=== PATIENT | male | born 1960 | race African-American/Black ===

== ENCOUNTER 2019-06-16 15:45 | Inpatient (IN) | payer MEDICAID, OTHER ==
[~2019-06-16] VITALS: Ht 165.1 cm; Wt 68.0 kg
[~2019-06-16 15:45] MED LIST: [UNRECOGNIZED DRUG - CODE] IH
[2019-06-16 16:45] VITALS: BP 120/85
[2019-06-16 17:44] VITALS: BP 120/85
[2019-06-16] MEDS ORDERED: IPRATROPIUM/ALBUTEROL 0.5-3(2.5)MG/3ML NEB HHN PRN (17:45)
[2019-06-16] MEDS ORDERED: HYDROCODONE/ACETAMINOPHEN 5/325MG TABLET PO PRN (18:00)
[2019-06-16 20:00] VITALS: BP 130/71
[2019-06-16] MEDS ORDERED: METHOCARBAMOL 750MG TABLET PO SCH (21:00)
[2019-06-16] MEDS: METHOCARBAMOL 500MG TABLET PO SCH (21:38)
[2019-06-16] MEDS: TRIAMCINOLONE ACETONIDE 0.025% CREAM 15GM TOP SCH (21:39)
[2019-06-16] MEDS: GABAPENTIN 300MG CAPSULE PO SCH (21:39)
[2019-06-16] MEDS: ASCORBIC ACID 500 MG TABLET PO SCH (21:39)
[2019-06-16] MEDS: HYDROCODONE/ACETAMINOPHEN 5/325MG TABLET PO PRN (21:44)
[2019-06-16] MEDS: DIPHENHYDRAMINE 25MG CAPSULE PO PRN (23:07)
[2019-06-17] MEDS: HYDROCODONE/ACETAMINOPHEN 5/325MG TABLET PO PRN (03:40)
[2019-06-17] MEDS: GABAPENTIN 300MG CAPSULE PO SCH ×3 (05:40→21:06)
[2019-06-17] MEDS: DIPHENHYDRAMINE 25MG CAPSULE PO PRN ×3 (05:44→23:09)
[2019-06-17] MEDS: BUDESONIDE 0.5MG/2ML NEB HHN SCH ×2 (07:52→21:45)
[2019-06-17 08:20] VITALS: BP 113/66
[2019-06-17] MEDS: ASCORBIC ACID 500 MG TABLET PO SCH ×2 (08:27→20:56)
[2019-06-17] MEDS: NICOTINE 7MG PATCH TD SCH (08:27)
[2019-06-17] MEDS: TRIAMCINOLONE ACETONIDE 0.025% CREAM 15GM TOP SCH (08:27)
[2019-06-17] MEDS: DOCUSATE SODIUM 100MG CAPSULE PO SCH ×2 (08:27→17:17)
[2019-06-17] MEDS: FUROSEMIDE 20MG TABLET PO SCH (08:27)
[2019-06-17] MEDS: POLYETHYLENE GLYCOL 3350 (17GM) 1 DOSE PACK PO SCH (08:28)
[2019-06-17] MEDS: METHOCARBAMOL 500MG TABLET PO SCH (08:28)
[2019-06-17] MEDS: HYDROCODONE/ACETAMINOPHEN 10/325MG TABLET PO PRN ×2 (12:39→18:41)
[2019-06-17] MEDS ORDERED: METHOCARBAMOL 500MG TABLET PO SCH (13:00)
[2019-06-17] MEDS: METHOCARBAMOL 750MG TABLET PO SCH ×3 (13:50→20:56)
[2019-06-17 15:27] LABS: HEMATOCRIT. 41.2 % (42.0-52.0); HEMOGLOBIN. 14.3 g/dL (14.0-18.0); MEAN CORPUSCULAR HEMOGLOBIN 30.1 pg (28.0-32.0); MEAN CORPUSCULAR VOLUME 86.5 fL (80.0-94.0); PLATELET 432 x1000/uL (130-400); RED BLOOD CELL COUNT 4.76 mill/uL (4.7-6.1); RED CELL DISTRIBUTION WIDTH 15.4 % (11.6-14.6)
[2019-06-17 15:50] LABS: CHLORIDE 99 mEq/L (98-107)
[2019-06-17 16:41] LABS: PLATELET ESTIMATE INCREASED
[2019-06-17 20:00] VITALS: BP 128/75
[2019-06-17] MEDS: TRIAMCINOLONE ACETONIDE 0.5% CREAM 15GM TOP SCH (20:56)
[2019-06-18] MEDS: HYDROCODONE/ACETAMINOPHEN 10/325MG TABLET PO PRN ×4 (00:41→20:09)
[2019-06-18] MEDS: GABAPENTIN 300MG CAPSULE PO SCH ×3 (05:53→21:10)
[2019-06-18] MEDS: DIPHENHYDRAMINE 25MG CAPSULE PO PRN ×2 (06:15→20:09)
[2019-06-18 08:19] VITALS: BP 107/59
[2019-06-18] MEDS: NICOTINE 7MG PATCH TD SCH (08:24)
[2019-06-18] MEDS: METHOCARBAMOL 750MG TABLET PO SCH ×4 (08:24→21:16)
[2019-06-18] MEDS: FUROSEMIDE 20MG TABLET PO SCH (08:24)
[2019-06-18] MEDS: ASCORBIC ACID 500 MG TABLET PO SCH ×2 (08:24→20:09)
[2019-06-18] MEDS: DOCUSATE SODIUM 100MG CAPSULE PO SCH ×2 (08:25→16:52)
[2019-06-18] MEDS: TRIAMCINOLONE ACETONIDE 0.5% CREAM 15GM TOP SCH ×2 (08:25→21:10)
[2019-06-18] MEDS: POLYETHYLENE GLYCOL 3350 (17GM) 1 DOSE PACK PO SCH (08:25)
[2019-06-18] MEDS: BUDESONIDE 0.5MG/2ML NEB HHN SCH (10:54)
[2019-06-18 20:00] VITALS: BP 112/60
[2019-06-18 23:37] LABS: CLARITY URINE CLEAR (CLEAR); COLOR URINE YELLOW (YELLOW); KETONES URINE NEGATIVE (NEGATIVE); LEUKOCYTE ESTERASE URINE NEGATIVE (NEGATIVE); NITRITE URINE NEGATIVE (NEGATIVE); OCCULT BLOOD URINE NEGATIVE (NEGATIVE); PROTEIN URINE NEGATIVE (NEGATIVE); SPECIFIC GRAVITY URINE 1.015 (1.005-1.030); UROBILINOGEN URINE 0.2 E.U./dL (0.2-1.0)
[2019-06-19] MEDS: HYDROCODONE/ACETAMINOPHEN 10/325MG TABLET PO PRN ×3 (02:11→17:29)
[2019-06-19] MEDS: DIPHENHYDRAMINE 25MG CAPSULE PO PRN ×3 (02:11→22:18)
[2019-06-19] MEDS: GABAPENTIN 300MG CAPSULE PO SCH ×3 (05:17→21:39)
[2019-06-19 08:00] VITALS: BP 112/68
[2019-06-19] MEDS: METHOCARBAMOL 750MG TABLET PO SCH ×4 (08:35→21:40)
[2019-06-19] MEDS: TRIAMCINOLONE ACETONIDE 0.5% CREAM 15GM TOP SCH ×2 (08:35→21:39)
[2019-06-19] MEDS: NICOTINE 7MG PATCH TD SCH (08:35)
[2019-06-19] MEDS: ASCORBIC ACID 500 MG TABLET PO SCH ×2 (08:36→21:40)
[2019-06-19] MEDS: FUROSEMIDE 20MG TABLET PO SCH (08:36)
[2019-06-19] MEDS: DOCUSATE SODIUM 100MG CAPSULE PO SCH ×3 (08:36→17:00)
[2019-06-19] MEDS: POLYETHYLENE GLYCOL 3350 (17GM) 1 DOSE PACK PO SCH (08:37)
[2019-06-19] MEDS: BUDESONIDE 0.5MG/2ML NEB HHN SCH ×2 (10:00→21:57)
[2019-06-19 20:00] VITALS: BP 125/74
[2019-06-20] MEDS: HYDROCODONE/ACETAMINOPHEN 10/325MG TABLET PO PRN ×3 (01:35→23:28)
[2019-06-20] MEDS: DIPHENHYDRAMINE 25MG CAPSULE PO PRN ×2 (04:09→21:49)
[2019-06-20] MEDS: GABAPENTIN 300MG CAPSULE PO SCH ×3 (07:00→21:50)
[2019-06-20 07:57] VITALS: BP 140/76
[2019-06-20] MEDS: FUROSEMIDE 20MG TABLET PO SCH (08:57)
[2019-06-20] MEDS: ASCORBIC ACID 500 MG TABLET PO SCH ×2 (08:57→21:50)
[2019-06-20] MEDS: METHOCARBAMOL 750MG TABLET PO SCH ×4 (08:57→21:50)
[2019-06-20] MEDS: DOCUSATE SODIUM 100MG CAPSULE PO SCH ×2 (08:57→17:00)
[2019-06-20] MEDS: NICOTINE 7MG PATCH TD SCH (08:57)
[2019-06-20] MEDS: TRIAMCINOLONE ACETONIDE 0.5% CREAM 15GM TOP SCH ×2 (08:57→21:53)
[2019-06-20] MEDS: POLYETHYLENE GLYCOL 3350 (17GM) 1 DOSE PACK PO SCH (08:58)
[2019-06-21] VITALS: BP 134/80
[2019-06-21] MEDS: GABAPENTIN 300MG CAPSULE PO SCH ×3 (06:20→21:29)
[2019-06-21] MEDS: HYDROCODONE/ACETAMINOPHEN 10/325MG TABLET PO PRN ×3 (06:26→22:54)
[2019-06-21 08:08] VITALS: BP 122/72
[2019-06-21] MEDS: DOCUSATE SODIUM 100MG CAPSULE PO SCH ×2 (08:10→17:00)
[2019-06-21] MEDS: POLYETHYLENE GLYCOL 3350 (17GM) 1 DOSE PACK PO SCH (08:10)
[2019-06-21] MEDS: ASCORBIC ACID 500 MG TABLET PO SCH ×2 (08:48→21:29)
[2019-06-21] MEDS: FUROSEMIDE 20MG TABLET PO SCH (08:48)
[2019-06-21] MEDS: METHOCARBAMOL 750MG TABLET PO SCH ×4 (08:48→21:29)
[2019-06-21] MEDS: NICOTINE 7MG PATCH TD SCH (08:48)
[2019-06-21] MEDS: TRIAMCINOLONE ACETONIDE 0.5% CREAM 15GM TOP SCH ×2 (08:49→21:31)
[2019-06-21] MEDS: DIPHENHYDRAMINE 25MG CAPSULE PO PRN (08:51)
[2019-06-21 20:00] VITALS: BP 135/75
[2019-06-22] MEDS: GABAPENTIN 300MG CAPSULE PO SCH ×3 (05:11→21:22)
[2019-06-22 08:14] VITALS: BP 127/76
[2019-06-22] MEDS: FUROSEMIDE 20MG TABLET PO SCH (08:29)
[2019-06-22] MEDS: DOCUSATE SODIUM 100MG CAPSULE PO SCH ×2 (08:29→17:00)
[2019-06-22] MEDS: ASCORBIC ACID 500 MG TABLET PO SCH ×2 (08:29→21:22)
[2019-06-22] MEDS: POLYETHYLENE GLYCOL 3350 (17GM) 1 DOSE PACK PO SCH (08:29)
[2019-06-22] MEDS: NICOTINE 7MG PATCH TD SCH (08:29)
[2019-06-22] MEDS: METHOCARBAMOL 750MG TABLET PO SCH ×4 (08:29→21:22)
[2019-06-22] MEDS: TRIAMCINOLONE ACETONIDE 0.5% CREAM 15GM TOP SCH ×2 (08:30→21:23)
[2019-06-22] MEDS: HYDROCODONE/ACETAMINOPHEN 10/325MG TABLET PO PRN ×2 (12:09→22:15)
[2019-06-22 20:00] VITALS: BP 121/77
[2019-06-23] MEDS: HYDROCODONE/ACETAMINOPHEN 10/325MG TABLET PO PRN ×3 (03:42→22:36)
[2019-06-23] MEDS: GABAPENTIN 300MG CAPSULE PO SCH ×3 (05:44→21:17)
[2019-06-23 07:57] VITALS: BP 122/71
[2019-06-23] MEDS: ASCORBIC ACID 500 MG TABLET PO SCH ×2 (08:21→21:16)
[2019-06-23] MEDS: METHOCARBAMOL 750MG TABLET PO SCH ×4 (08:21→21:17)
[2019-06-23] MEDS: FUROSEMIDE 20MG TABLET PO SCH (08:21)
[2019-06-23] MEDS: NICOTINE 7MG PATCH TD SCH (08:22)
[2019-06-23] MEDS: TRIAMCINOLONE ACETONIDE 0.5% CREAM 15GM TOP SCH ×2 (08:22→21:17)
[2019-06-23] MEDS: DOCUSATE SODIUM 100MG CAPSULE PO SCH ×2 (08:25→16:18)
[2019-06-23] MEDS: POLYETHYLENE GLYCOL 3350 (17GM) 1 DOSE PACK PO SCH (08:25)
[2019-06-23 20:00] VITALS: BP 119/76
[2019-06-24] MEDS: HYDROCODONE/ACETAMINOPHEN 10/325MG TABLET PO PRN ×3 (04:26→21:07)
[2019-06-24] MEDS: GABAPENTIN 300MG CAPSULE PO SCH ×3 (05:39→21:00)
[2019-06-24 08:11] VITALS: BP 110/77
[2019-06-24] MEDS: POLYETHYLENE GLYCOL 3350 (17GM) 1 DOSE PACK PO SCH (09:00)
[2019-06-24] MEDS: DOCUSATE SODIUM 100MG CAPSULE PO SCH ×2 (09:00→17:00)
[2019-06-24] MEDS: METHOCARBAMOL 750MG TABLET PO SCH ×4 (10:00→21:00)
[2019-06-24] MEDS: ASCORBIC ACID 500 MG TABLET PO SCH ×2 (10:01→21:00)
[2019-06-24] MEDS: FUROSEMIDE 20MG TABLET PO SCH (10:01)
[2019-06-24] MEDS: NICOTINE 7MG PATCH TD SCH (10:02)
[2019-06-24] MEDS: TRIAMCINOLONE ACETONIDE 0.5% CREAM 15GM TOP SCH ×2 (10:03→21:00)
[2019-06-24] MEDS: DIPHENHYDRAMINE 25MG CAPSULE PO PRN (10:18)
[2019-06-24 20:00] VITALS: BP 111/69
[2019-06-25] MEDS: DIPHENHYDRAMINE 25MG CAPSULE PO PRN ×3 (01:23→22:29)
[2019-06-25] MEDS: GABAPENTIN 300MG CAPSULE PO SCH ×3 (05:51→21:07)
[2019-06-25] MEDS: HYDROCODONE/ACETAMINOPHEN 10/325MG TABLET PO PRN ×3 (05:52→22:30)
[2019-06-25 08:16] VITALS: BP 113/73
[2019-06-25] MEDS: FUROSEMIDE 20MG TABLET PO SCH (08:21)
[2019-06-25] MEDS: METHOCARBAMOL 750MG TABLET PO SCH ×4 (08:21→20:31)
[2019-06-25] MEDS: DOCUSATE SODIUM 100MG CAPSULE PO SCH ×3 (08:21→16:34)
[2019-06-25] MEDS: ASCORBIC ACID 500 MG TABLET PO SCH ×2 (08:21→21:07)
[2019-06-25] MEDS: NICOTINE 7MG PATCH TD SCH (08:22)
[2019-06-25] MEDS: POLYETHYLENE GLYCOL 3350 (17GM) 1 DOSE PACK PO SCH (08:25)
[2019-06-25] MEDS: TRIAMCINOLONE ACETONIDE 0.5% CREAM 15GM TOP SCH ×2 (08:40→21:09)
[2019-06-25 16:15] VITALS: BP 127/94
[2019-06-25 20:00] VITALS: BP 131/68
[2019-06-26] MEDS: GABAPENTIN 300MG CAPSULE PO SCH (05:24)
[2019-06-26] MEDS: HYDROCODONE/ACETAMINOPHEN 10/325MG TABLET PO PRN (05:25)
[2019-06-26 07:56] VITALS: BP 126/70
[2019-06-26] MEDS: DOCUSATE SODIUM 100MG CAPSULE PO SCH (08:20)
[2019-06-26] MEDS: NICOTINE 7MG PATCH TD SCH (08:21)
[2019-06-26] MEDS: METHOCARBAMOL 750MG TABLET PO SCH (08:21)
[2019-06-26] MEDS: FUROSEMIDE 20MG TABLET PO SCH (08:21)
[2019-06-26] MEDS: POLYETHYLENE GLYCOL 3350 (17GM) 1 DOSE PACK PO SCH (08:21)
[2019-06-26] MEDS: TRIAMCINOLONE ACETONIDE 0.5% CREAM 15GM TOP SCH (08:22)
[2019-06-26] MEDS: ASCORBIC ACID 500 MG TABLET PO SCH (08:22)
[2019-06-26 12:58] VITALS: BP 120/71
== END 2019-06-26 13:40 | disposition home health service (06) | DRG 347 ==
LOC: UNDOADMIN 15:45
PROVIDERS: ADMIT Psychiatry & Neurology Neurology; ATTEND Hospitalist
DX: M51.26 Other intervertebral disc displacement, lumbar region (principal); E87.6 Hypokalemia; G83.4 Cauda equina syndrome; F17.210 Nicotine dependence, cigarettes, uncomplicated; J44.9 Chronic obstructive pulmonary disease, unspecified; M48.061 Spinal stenosis, lumbar region without neurogenic claudication; F17.200 Nicotine dependence, unspecified, uncomplicated; Z71.6 Tobacco abuse counseling
CPT/HCPCS: 36415; 80048; 81003; 85025; 93970; 94640; 97110; 97112; 97116; 97162; 97166; 97530; 97535; J7626; Q0163